=== PATIENT | female | born 1980 | race Caucasian/White ===

== ENCOUNTER 2020-09-17 13:29 | Emergency (ER) | payer SELFPAY ==
[2020-09-17] MEDS ORDERED: PENICILLIN G BENZATHINE 2,400,000 UNIT/4 ML PFS IM ONE (13:44)
[2020-09-17 13:52] VITALS: BP 124/86; PULSE 74; TEMP 99.3; BMI 37.8
[2020-09-17] MEDS ORDERED: PENICILLIN G BENZATHINE 1,200,000 UNIT/2 ML PFS IM ONE (13:55)
[2020-09-17 16:32] LABS: HIV INTERPRETATION NEGATIVE (NEGATIVE)
== END 2020-09-17 15:32 | disposition home or self-care (01) ==
LOC: FER 13:29
DX: Z20.2 Contact with and (suspected) exposure to infections with a predominantly sexual mode of transmission (principal)
CPT/HCPCS: 36415; 84703; 86593; 86780; 87389; 87491; 87591; 99284-25

== ENCOUNTER 2020-09-24 17:50 | Emergency (ER) | payer SELFPAY ==
[2020-09-24 18:08] VITALS: BP 123/80; PULSE 75; TEMP 97.8; BMI 37.8
[2020-09-24] MEDS ORDERED: PENICILLIN G BENZATHINE 2,400,000 UNIT/4 ML PFS IM ONE (18:23)
[2020-09-24] MEDS ORDERED: PENICILLIN G BENZATHINE 1,200,000 UNIT/2 ML PFS IM ONE (18:26)
== END 2020-09-24 18:50 | disposition home or self-care (01) ==
LOC: FER 17:50
DX: A53.9 Syphilis, unspecified (principal); T36.95XA Adverse effect of unspecified systemic antibiotic, initial encounter
CPT/HCPCS: 99284-25

== ENCOUNTER 2020-10-02 16:47 | Emergency (ER) | payer SELFPAY ==
[2020-10-02 16:57] VITALS: BP 129/93; PULSE 81; TEMP 99.5; BMI 37.8
[2020-10-02] MEDS ORDERED: PENICILLIN G BENZATHINE 2,400,000 UNIT/4 ML PFS IM ONE (16:57)
[2020-10-02] MEDS ORDERED: PENICILLIN G BENZATHINE 1,200,000 UNIT/2 ML PFS IM ONE (17:06)
== END 2020-10-02 17:22 | disposition home or self-care (01) ==
LOC: FER 16:47
DX: A53.9 Syphilis, unspecified (principal)
CPT/HCPCS: 99284-25